=== PATIENT | male | born 1980 | race Caucasian/White ===

== ENCOUNTER 2020-12-14 11:11 | Emergency (ER) | payer OTHER ==
[2020-12-14 13:52] LABS: HEMOGLOBIN 14.6 gm/dl (14.0-17.5); RED BLOOD COUNT 5.2 M/UL (4.20-5.50); WHITE BLOOD COUNT 4.2 K/UL (4.5-11.0)
[2020-12-14 14:17] LABS: BUN/CREATININE RATIO 11 (0-10)
[2020-12-14] MEDS ORDERED: PERCOCET 5/325 T1 EA PO (15:40)
[2020-12-14] MEDS ORDERED: DECADRON6 MG PO (15:40)
== END 2020-12-14 16:15 | disposition home or self-care (01) ==
LOC: ER1 11:11
PROVIDERS: Family Medicine
DX: M71.9 Bursopathy, unspecified (principal); Z90.49 Acquired absence of other specified parts of digestive tract
CPT/HCPCS: 36415; 71045; 73030; 80053; 83615; 85025; 85379; 85652; 86140; 96372; 99283; J1100